=== PATIENT | male | born 1985 | race Caucasian/White ===

== ENCOUNTER 2024-06-16 16:02 | Emergency (ER) | payer SELFPAY ==
[~2024-06-16] VITALS: Ht 182.9 cm; Wt 91.0 kg
[2024-06-16 16:37] VITALS: O2SAT 98
[2024-06-16] MEDS ORDERED: HYDROCODONE/ACETAMINOPHEN 10/325MG TABLET PO ONE (17:45)
[2024-06-16 18:01] VITALS: BP 128/81
[2024-06-16] MEDS: HYDROCODONE/ACETAMINOPHEN 10/325MG TABLET PO NR (18:01)
[2024-06-16] MEDS: CEPHALEXIN 250MG CAPSULE PO ONE (18:01)
[2024-06-16] MEDS: SULFAMETHOXAZOLE/TRIMETHOPRIM 400/80MG TAB PO ONE (18:01)
[2024-06-16] MEDS ORDERED: CEPH500C2 MT (18:19)
[2024-06-16] MEDS ORDERED: SULF1TAB48 MT (18:19)
[2024-06-16 18:40] VITALS: PULSE 92; RESP 16; TEMP 36.89184; O2SAT 99
== END 2024-06-16 18:45 | disposition home or self-care (01) ==
LOC: ER 16:02
DX: L03.115 Cellulitis of right lower limb (principal); L02.415 Cutaneous abscess of right lower limb
CPT/HCPCS: 71045; 99284